=== PATIENT | female | born 1995 | race Caucasian/White ===

== ENCOUNTER → 2017-06-15 | Outpatient (CLI) | payer OTHER ==
[~2017-06-15] MED LIST: IOPAMIDOL (ISOVUE 370) 100 ML BTL IV ONE
== END ==
LOC: FIMAGING 15:03
PROVIDERS: ATTEND Internal Medicine Endocrinology, Diabetes & Metabolism
DX: R91.1 Solitary pulmonary nodule (principal)
CPT/HCPCS: Q9967